=== PATIENT | male | born 1940 ===

== ENCOUNTER → 2017-12-14 14:04 | Outpatient (REF) | payer OTHER, SELFPAY | LOC: LAB 14:04 | PROVIDERS: Visit Provider Dermatology MOHS-Micrographic Surgery | DX: L66.8 Other cicatricial alopecia (principal); L53.8 Other specified erythematous conditions; R20.8 Other disturbances of skin sensation; Z78.9 Other specified health status; Z85.828 Personal history of other malignant neoplasm of skin | CPT/HCPCS: 87070; 87075; 87077; 87147; 87186; 87205 ==